=== PATIENT | female | born 1985 | race Caucasian/White ===

== ENCOUNTER 2022-06-21 17:33 | Emergency (ER) | payer OTHER, SELFPAY ==
[2022-06-21] VITALS (11 sets, daily range): BP systolic 118–141; BP diastolic 68–97; PULSE 65–98; RESP 14–22; TEMP 36.3; O2SAT 97–100; BMI 30.2
[2022-06-21 18:51] LABS: Add Manual Diff / Slide Review NO; Basophils Absolute Auto 0 /uL (0-100); Basophils Percent Auto 0.6 % (0-2); Eosinophils Absolute Auto 0 /uL (0-450); Eosinophils Percent Auto 0.6 % (2-4); Hematocrit 39.7 % (36-46); Hemoglobin 13.3 g/dL (12.0-16.0); Lymphocytes Absolute Auto 1500 /uL (1100-4500); Mean Corpuscular HGB Conc 33.4 % (30-36); Mean Corpuscular Hemoglobin 28.5 PG (26-34); Mean Corpuscular Volume 85.1 fL (80-100); Monocytes Absolute Auto 400 /uL (0-900); Monocytes Percent Auto 5.3 % (3-14); Neutrophils Absolute Auto 5500 /uL (1500-7000); Neutrophils Percent Auto 73.5 % (50-75); Platelet Count 216 X10^3/uL (150-400); Red Blood Cell Count 4.66 X10^6/uL (4.0-5.2); Red Cell Distribution Width 13.1 % (11.6-14.8); White Blood Cell Count 7.5 X10^3/uL (4.5-11.0)
[2022-06-21 19:06] LABS: Alanine Aminotransferase 33 IU/L (<35); Albumin Globulin Ratio 1.3 (1.0-2.8); Alkaline Phosphatase 71 U/L (38-126); Aspartate Aminotransferase 35 IU/L (14-36); BUN Creatinine Ratio 9.9 (6-22); Bilirubin Total 0.8 mg/dL (0.2-1.3); Blood Urea Nitrogen 7 mg/dL (7-17); Calcium 10.6 mg/dL (8.4-10.2); Carbon Dioxide 27 mmol/L (22-32); Chloride 100 mmol/L (98-107); Estimated Glomerular Filt Rate > 60 mL/min (>60); Globulin 3.8 g/dL (1.7-4.1); Glucose 95 mg/dL (70-100); HEMOLYSIS < 15 (0-50); Lipase 60 U/L (23-300); Potassium 3.5 mmol/L (3.4-5.1); Sodium 139 mmol/L (137-145); Total Protein 8.8 g/dL (6.3-8.2)
--- NOTE | 2022-06-21 19:12 | ED_ITS ---
HPI - Abdominal Pain General Chief Complaint: Abdominal Pain Stated Complaint: blood in stool, heartburn, palpitations Time Seen by Provider: 06/21/22 17:38 Source: patient Mode of arrival: Ambulatory History of Present Illness HPI narrative: 36-year-old female nonsmoker with history of palpitations and epigastric pain presents with ongoing palpitations, heartburn and occasional blood in her stool. She is been seen and evaluated on multiple prior occasions and has had extensive workups without any significant findings. She presents today feeling generally well but concerned that her ongoing palpitations could be related. She denies weakness, dizziness or lightheadedness. She denies any pain. She denies any change in meds or diet Related Data Previous Rx's Medication Instructions Recorded pantoprazole 40 mg tablet,delayed 40 mg PO DAILY #30 tabs 06/21/22 release (Protonix) Allergies Allergy/AdvReac Type Severity Reaction Status Date / Time cephalexin [From Keflex] AdvReac Rash Verified 06/21/22 17:46 Review of Systems Review of Systems Narrative: GENERAL: Denies chills, fatigue, malaise, fever, sweats. HEENT: Denies sinus pain, ear pain, sore throat, difficulty swallowing, dizziness. RESPIRATORY: Denies dyspnea, cough, wheezing, hemoptysis, sputum. CARDIOVASCULAR: See HPI GASTROINTESTINAL: See HPI : Denies dysuria, frequency, incontinence, hematuria, urinary retention. MUSCULOSKELETAL: denies weakness, joint pain, or bony pain SKIN: Denies rash, skin lesions, or other NEUROLOGIC: Denies weakness, headache, numbness, change in speech, confusion, seizures, incoordination. PSYCHIATRIC: No concerning psychosocial issues. 12 point review of systems is negative except for those stated above Patient History Social History Smoking Status: Never smoker Smoking Status: Never smoker alcohol intake frequency: 0-2 drinks per day Substance Use Type: does not use Exam Initial Vital Signs Initial Vital Signs: Vital Signs Temperature 97.3 F L 06/21/22 17:40 Pulse Rate 98 H 06/21/22 17:40 Respiratory Rate 16 06/21/22 17:40 Blood Pressure 141/97 H 06/21/22 17:40 Pulse Oximetry 98 06/21/22 17:40 Oxygen Delivery Method 06/21/22 17:40 GENERAL: [36] year old patient appears stated age. Well-developed patient, in mild distress. HEAD: Atraumatic. Normocephalic. EYES: Pupils equal round and reactive. Extraocular motions intact. No scleral icterus. No injection or drainage. ENT: Nose without bleeding, purulent drainage. Throat without erythema, tonsillar hypertrophy or exudate. Airway patent. NECK: Trachea midline. Non tender CARDIOVASCULAR: Regular rate and rhythm without murmurs, gallops, or rubs. RESPIRATORY: Clear to auscultation. Breath sounds equal bilaterally. No wheezes, rales, or rhonchi. GASTROINTESTINAL: Abdomen soft, non-tender, nondistended. RECTAL: Heme-negative, no hemorrhoids or fissures EXTREMITIES: No edema or joint tenderness. BACK: Nontender without deformity or crepitance. No flank tenderness. NEURO: AOx3. SKIN: No rash or erythema of visible areas Course Orders Ordered: Discontinued Medications Ondansetron HCl (Ondansetron 4 Mg/2 Ml Inj) 4 mg IV NOW ONE Stop: 06/21/22 17:47 Last Admin: 06/21/22 19:35 Dose: 4 mg Documented By: YUDI Pantoprazole Sodium (Pantoprazole 40 Mg Vial) 40 mg IV NOW ONE Stop: 06/21/22 17:47 Last Admin: 06/21/22 19:35 Dose: 40 mg Documented By: YUDI Vital Signs Vital signs: Vital Signs - 8 hr 06/21/22 17:40 06/21/22 18:48 06/21/22 18:49 Temperature 97.3 F L Pulse Rate 98 H 72 Respiratory Rate 16 22 Blood Pressure 141/97 H 129/68 Pulse Oximetry 98 100 Oxygen Delivery Method Room Air Room Air 06/21/22 18:49 06/21/22 19:00 06/21/22 19:30 Temperature Pulse Rate 72 65 77 Respiratory Rate 20 17 14 Blood Pressure Pulse Oximetry 99 100 100 Oxygen Delivery Method Room Air Room Air Room Air MDM - Abdominal Pain Lab Data Result diagrams: 06/21/22 18:40 06/21/22 18:40 Labs: Lab Results 06/21/22 06/21/22 Range/Units 18:40 18:40 WBC 7.5 (4.5-11.0) X10^3/uL RBC 4.66 (4.0-5.2) X10^6/uL Hgb 13.3 (12.0-16.0) g/dL Hct 39.7 (36-46) % MCV 85.1 (80-100) fL MCH 28.5 (26-34) PG MCHC 33.4 (30-36) % RDW 13.1 (11.6-14.8) % Plt Count 216 (150-400) X10^3/uL Neut % (Auto) 73.5 (50-75) % Lymph % (Auto) 20.0 L (25-40) % [place] % (Auto) 5.3 (3-14) % Eos % (Auto) 0.6 L (2-4) % Baso % (Auto) 0.6 (0-2) % Neut # (Auto) 5500 (8841-6264) /uL Lymph # (Auto) 1500 (5932-1090) /uL [place] # (Auto) 400 (0-900) /uL Eos # (Auto) 0 (0-450) /uL Baso # (Auto) 0 (0-100) /uL Sodium 139 (137-145) mmol/L Potassium 3.5 (3.4-5.1) mmol/L Chloride 100 (98-107) mmol/L Carbon Dioxide 27 (22-32) mmol/L BUN 7 (7-17) mg/dL Creatinine 0.71 (0.52-1.04) mg/dL Estimated GFR > 60 (>60) mL/min BUN/Creatinine Ratio 9.9 (6-22) Glucose 95 (70-100) mg/dL Calcium 10.6 H (8.4-10.2) mg/dL Total Bilirubin 0.8 (0.2-1.3) mg/dL AST 35 (14-36) IU/L ALT 33 (<35) IU/L Alkaline Phosphatase 71 (38-126) U/L Total Protein 8.8 H (6.3-8.2) g/dL Albumin 5.0 (3.5-5.0) g/dL Globulin 3.8 (1.7-4.1) g/dL Albumin/Globulin Ratio 1.3 (1.0-2.8) Lipase 60 (23-300) U/L Point of care testing: Point of Care Testing Test Results Negative Stool Occult Blood Negative Urine Dip Bedside Urine Glucose Negative Bedside Urine Bilirubin - Negative Bedside Urine Ketone +++ 80 Urine Specific [place] 1.015 Bedside Urine Occult Blood - Negative Bedside Urine pH 6.0 Bedside Urine Protein - Negative Bedside Urine Urobilinogen +/- 1mg Bedside Urine Nitrite - Negative Bedside Urine Leukocytes - Negative Esterase MDM Narrative Medical decision making narrative: [36-year-old female with recent history of palpitations mild epigastric pain and 1 episode of bloody stool] Multiple etiologies for patient's symptoms considered including, but not limited to: [GI bleed, anemia, infectious process vs. other] Labs reviewed and interpreted by myself: No significant abnormalities noted, most significantly no measurable anemia Patient demonstrates no palpitations or arrhythmia during her visit, she is stable vital signs. Labs are very reassuring and there is no evidence of anemia. Rectal exam demonstrates no evidence of bleeding Patient's symptoms improved over duration of stay with above-stated therapies. Findings and discharge diagnosis discussed with patient/family followed by verbalization of understanding Return precautions discussed with patient/family whom verbalize understanding of diagnosis and plan Discharge Plan Departure Patient Disposition: Home Clinical Impression: Rectal bleeding Instructions: DI for Rectal Bleeding Activity Restrictions/Additional Instructions: *You have been diagnosed with [likely rectal bleed, thankfully no evidence of bleeding during our exam. As we discussed your lab work is very reassuring] *What to do: *Please continue to take your regular medications as directed. [x ] New medication prescriptions sent to your pharmacy: [[facility] ] [ ] New medication written as a paper prescription [ ] No new medications given *Please follow up with your primary care provider in 2-3 days, call for an appointment. Let them know you were seen in the Emergency Department and that we ask that you be seen in follow up. We will electronically transmit a record of today's note if your PCP is in our system *If you do not have a primary care provider please contact the [facility] Resource line at [phone]. They will ask some questions about your medical history and help get you set up with a doctor in the community. *Return to Emergency Department if you should have any new, worsening or concerning symptoms, such as [fever greater than 101 F, shaking chills, worseni ng pain, persistent vomiting or other bothersome symptoms] Prescriptions: New pantoprazole [Protonix] 40 mg tablet,delayed release (DR/EC) 40 mg PO DAILY Qty: 30 0RF Referrals: Miscellaneous,Doctor, MD [Primary Care Provider] - Stand Alone Forms: Patient Portal/API
[2022-06-21] MEDS: ONDANSETRON 4 MG/2 ML INJ IV (19:35)
[2022-06-21] MEDS: PANTOPRAZOLE 40 MG VIAL IV (19:35)
== END 2022-06-21 22:18 | disposition home or self-care (01) ==
PROVIDERS: Emergency Provider Emergency Medicine
DX: R00.2 Palpitations (principal); R10.13 Epigastric pain; K62.5 Hemorrhage of anus and rectum
CPT/HCPCS: 36415; 80053; 81003; 81025; 82272; 83690; 85025; 96374; 96375; 99284; C9113; J2405